=== PATIENT | female | born 1975 | race Caucasian/White ===

== ENCOUNTER 2016-12-28 09:54 | Day surgery (SDC) | payer OTHER ==
[2016-12-28] VITALS (12 sets, daily range): BP systolic 118–169; BP diastolic 79–98; PULSE 79–96; RESP 10–26; Ht 162.6 cm; Wt 85.0 kg
[~2016-12-28] VITALS: Ht 162.6 cm; Wt 85.0 kg
[~2016-12-28 09:54] MED LIST: CEFAZOLIN 2 GM/50 ML (PMX) 50 ML IVPB SCH; SOD CHLORIDE 0.9% 1,000 ML IV SCH
[2016-12-28] MEDS ORDERED: PANT40TA4 PO (10:25)
[2016-12-28] MEDS ORDERED: ATOR20TA38 PO (10:25)
[2016-12-28] MEDS ORDERED: CHOL100062 PO ×2 (10:25→10:26)
[2016-12-28] MEDS ORDERED: CALC500T91 PO (10:26)
[2016-12-28] MEDS ORDERED: SUCCINYLCHOLINE CHLORIDE 100 MG/5 ML SYG IV ONE (12:36)
[2016-12-28] MEDS ORDERED: PROPOFOL 20 ML ONE (12:36)
[2016-12-28] MEDS ORDERED: MIDAZOLAM 1 MG/ML 2 ML INJ ONE (12:37)
[2016-12-28] MEDS ORDERED: FENTAnyl 50 MCG/ML VIAL ONE ×2 (12:37→13:22)
[2016-12-28] MEDS ORDERED: LIDOCAINE 1% (MDV) 20 ML INJ ONE (12:37)
[2016-12-28] MEDS ORDERED: ROPIVACAINE 0.2% 20 ML VIAL ONE (12:41)
[2016-12-28] MEDS ORDERED: BUPIVACAINE 0.25% (MPF) 30 ML INJ ONE (12:45)
[2016-12-28] MEDS ORDERED: ROCURONIUM 50 MG INJ ONE (13:04)
[2016-12-28] MEDS ORDERED: ONDANSETRON 4 MG INJ ONE (13:17)
[2016-12-28] MEDS ORDERED: DEXAMETHASONE 4 MG/ML 1 ML INJ ONE (13:18)
[2016-12-28] MEDS ORDERED: FAMOTIDINE 20 MG INJ ONE (13:19)
[2016-12-28] MEDS ORDERED: SUGAMMADEX SODIUM 200 MG/2 ML VIAL IV ONE (13:43)
[2016-12-28] MEDS ORDERED: BUPIVACAINE 0.25% (MPF) 30 ML INJ INJ ONE (13:46)
--- NOTE | 2016-12-28 13:50 | OPR ---
Date/Time of Note Date/Time of Note DATE: 12/28/16 TIME: 13:49 Operative Report Preoperative Diagnosis symptomatic gallstones and liver WATSON Postoperative Diagnosis same Operation/Procedure Performed lap chuck wedge liver biopsy therapeutic subcutaneous marcaine injection Surgeon: Bob APONTE Specimens gallbladder and wedge liver biopsy Bob APONTE Dec 28, 2016 13:50
--- NOTE | 2016-12-28 14:08 | OPR ---
DATE OF OPERATION: 12/28/2016 INDICATION: This is a 41-year-old female with symptomatic gallstones and liver WATSON on imaging. Ann ojeda requests surgical excision of her gallbladder and a liver wedge biopsy. Risks, alternatives, bene fits, and personnel were discussed with the patient. The patient expressed understanding and consen ts to the operation. PREOPERATIVE DIAGNOSES: 1. Symptomatic gallstones. 2. Liver nonalcoholic steatohepatitis on imaging. POSTOPERATIVE DIAGNOSES: 1. Symptomatic gallstones. 2. Liver nonalcoholic steatohepatitis on imaging. OPERATION PERFORMED: 1. Laparoscopic cholecystectomy. 2. Wedge liver biopsy. 3. Therapeutic injection of subcutaneous local anesthesia. SURGEON: Marky Moore MD SPECIMEN: Gallbladder and wedge liver biopsy. COMPLICATIONS: None. ANESTHESIA: General. PROCEDURE: The patient was taken to the OR and prepped and draped in the usual sterile fashion. Lynn rgical timeout was performed. IV antibiotics given. Infraumbilical incision is made with a 15 blad e. Dissection cautery was carried down to the fascia, which was divided with curved Huddleston scissors. An 0 Vicryl U-stitch was placed into the fascia. Balloon Brina trocar was introduced. Pneumoperi toneum established. Midepigastric 12 mm optical trocar and right upper quadrant and right upper fla nk 5 mm optical trocars are placed under direct visualization. Upon initial inspection, there were some adhesions to the gallbladder. The cystic duct was taken down and identified using a dome-down approach. The cystic duct was divided using 2 fires of a 35 mm Whittlesey vascular stapler. The gallb ladder was taken off the gallbladder bed. The cystic artery was divided with a stapler. There was good hemostasis. Gallbladder was taken and retrieved using the Endo Catch bag. Wedge liver biopsy in segment 5 was performed with cautery scissors. This was retrieved using a grasper through the mi depigastric port. There was good hemostasis. Ports were removed under direct visualization. The f ascia was tied down with 0 Vicryl UR6 stitch. Skin was closed using skin ermelinda. Local anesthesia was injected. Dry dressings were applied. Dictated By: MARKY HUFFMAN/NEMO Conf#: [id number] DID#: [id number]
[2016-12-28] MEDS ORDERED: HYDROmorphONE (0.2 MG/ML) 10ML SYG IV ONE (14:13)
[2016-12-28] MEDS ORDERED: hydrALAzine 20 MG INJ IV PRN (14:30)
[2016-12-28] MEDS ORDERED: MEPERIDINE 25 MG INJ IV PRN (14:30)
[2016-12-28] MEDS ORDERED: DIPHENHYDRAMINE 50 MG INJ IV PRN (14:30)
[2016-12-28] MEDS ORDERED: HYDROmorphONE (0.2 MG/ML) 10ML SYG IV PRN ×2 (14:30)
[2016-12-28] MEDS ORDERED: HYDROCODONE/APAP (5/325) TAB PO ONE (15:30)
== END 2016-12-28 17:18 | disposition home or self-care (01) ==
LOC: SDS 09:54
PROVIDERS: ATTEND Surgery
DX: K80.20 Calculus of gallbladder without cholecystitis without obstruction (principal); K75.81 Nonalcoholic steatohepatitis (NASH)
CPT/HCPCS: 47100; 47562; 88304; 88307; 88313; J1100; J1170; J2175; J2250; J2405; J2795; J3010; J7999; Z7512; Z7610

== ENCOUNTER 2017-07-27 06:13 | Day surgery (SDC) | END 2017-07-27 12:50 | disposition home or self-care (01) ==